=== PATIENT | female | born 1945 | race Caucasian/White ===

== ENCOUNTER 2020-06-12 14:33 | Outpatient (CLI) | payer MEDICARE, SELFPAY ==
--- NOTE | 2020-06-12 14:38 | MM_ITS ---
WS: [id number] BILATERAL DIGITAL SCREENING MAMMOGRAPHY WITH CAD CLINICAL INFORMATION: SCREENING HISTORY: Screening mammogram. No current complaints. COMPARISON: TECHNIQUE: Bilateral CC and MLO views. FINDINGS: Scattered fibroglandular densities bilaterally. No suspicious focal mass, asymmetry, calcifications, or architectural distortion. No evidence of malignancy. Punctate calcifications. Vascular calcificati on. MM/[place] [id number] IMPRESSION: BI-RADS: 2-Benign FOLLOW UP: 1 Year Follow-up Recommend return to annual screening mammography.
== END 2020-06-12 14:34 | disposition home or self-care (01) ==
LOC: RADSHAW 14:37
PROVIDERS: PCP Family Medicine; Visit Provider Obstetrics & Gynecology
DX: Z12.31 Encounter for screening mammogram for malignant neoplasm of breast (principal)
CPT/HCPCS: 77067

== ENCOUNTER 2021-07-14 13:06 | Outpatient (CLI) | payer MEDICARE, SELFPAY ==
--- NOTE | 2021-07-14 13:11 | MM_ITS ---
WS: [id number] BILATERAL SCREENING DIGITAL MAMMOGRAM WITH CAD HISTORY: SCREENING COMPARISON: 06/12/2020 and 04/04/2019 Bilateral CC and MLO views submitted. Computer aided detection analyzed. Breast composition: There are scattered areas of fibroglandular density. No suspicious masses, microc alcifications or architectural distortion. Benign calcifications in each breast. MM/[place] [id number] IMPRESSION: BI-RADS: 2-Benign FOLLOW UP: 1 Year Follow-up
== END 2021-07-14 13:07 | disposition home or self-care (01) ==
LOC: RADSHAW 13:10
PROVIDERS: PCP Family Medicine; Visit Provider Obstetrics & Gynecology
DX: Z12.31 Encounter for screening mammogram for malignant neoplasm of breast (principal)
CPT/HCPCS: 77067

== ENCOUNTER 2022-04-19 06:39 | Outpatient (CLI) | payer MEDICARE, SELFPAY ==
--- NOTE | 2022-04-19 06:52 | ECG_ITS ---
[facility] Test Date: 2022-04-19 Pat Name: Janay Erickson Department: Room: Gender: Female Consumer [employer]: : 1945 Requested By: Bradley Judd Order Number: [id number] Eve MD: Kwesi Flower M.D. Interpretive Statements NAME OF STUDY: LEXISCAN SESTAMIBI STRESS TEST INDICATION: [Chest Pain; Shortness of Breath;Fatigue, ] Procedure: At the baseline, the blood pressure was 157/85 mmHg with a heart rate of 59 bpm. The electrocardiogram showed normal sinus rhythm, normal axis with normal ST and T's. The Lexiscan was infused over a period of 20 seconds. A total of 0.4 mg of Lexiscan was infused. The stress phase was continued for a total of 5 minutes. Heart rate was at the end of stress phase was 75 bpm and a blood pressure of 152/71 mmHg. The EKG at the peak infusion revealed since normal sinus rhythm with no significant ST-T wave changes. Sestamibi was injected 20 seconds after the Lexiscan infusion. Blood pressure at the end of recovery phase was 145/69 mmHg with a heart rate of 72 bpm. Conclusion: 1. Normal EKG response to Lexiscan infusion 2. No Lexiscan induced chest pain or cardiac arrhythmia. 3. Normal blood pressure and heart rate response. 4. Sestamibi/sestamibi perfusion scan pending; see separate report. Electronically Signed On 05-10-2022 8:28:12 CDT by Kwesi Flower M.D. [email or web address]
--- NOTE | 2022-04-19 06:52 | NMCV_ITS ---
NM rachelle perf SPECT r/s* [id number] Janay Erickson Age: 76 Gender: F : 1945 Exam Date: 04/19/2022 08:05 Ordering Phys: Bradley Jimenez MD Technologist: ELIZABETH Zuluaga Exam Location: [facility] Indications: CHEST PAIN STRESS TEST [facility] IMAGE PROTOCOL Rest/Stress 1 Lexiscan Day Radiopharmaceutical Dose (mCi) Administration Site Administered by Rest: Tc-99m 10.7 IV ELIZABETH Julien Sestamibi Stress:Tc-99m 32.9 IV ELIZABETH Zuluaga Sestamigilma Rest: 19-Apr-2022 60 Discovery 630 Stress: 19-Apr-2022 30 Discovery 630 0.4mg Lexiscan. Images obtained in supine and prone position. SPECT RESULTS Technical Quality: Excellent Raw Data Analysis: Normal Image Corrections: No attenuation or motion correction applied Summed Stress Score: 1 Summed Rest Score: 1 Summed Difference Score: 0 PERFUSION FINDINGS SPECT images demonstrate homogeneous tracer distribution throughout the myocardium. FUNCTIONAL RESULTS (calculated via Gated SPECT) Stress Image LV EF (%): 68 Stress EDV (mL):111 TID: 1.16 Stress ESV (mL):35 FUNCTIONAL FINDINGS: There is normal left ventricular systolic function. IMPRESSIONS 1. Normal myocardial perfusion imaging with no evidence of ischemia. 2. LV systolic function is normal Kwesi Flower MD (Electronically Signed) Final Date: 23 Apr 2022 23:54 S
[2022-04-19 07:01] VITALS: BMI 24.7
[2022-04-19] MEDS: regadenoson 0.4 Mg/5 ml Syringe IVP (08:36)
[2022-04-19 08:53] VITALS: BP 140/67; PULSE 70
== END 2022-04-19 06:40 | disposition home or self-care (01) ==
LOC: CDL 06:42
PROVIDERS: PCP Family Medicine; Visit Provider Family Medicine
DX: R07.9 Chest pain, unspecified (principal)
CPT/HCPCS: 78452; A9500; J2785

== ENCOUNTER 2022-07-29 09:34 | Outpatient (CLI) | payer MEDICARE, SELFPAY ==
--- NOTE | 2022-07-29 09:47 | MM_ITS ---
WS: [id number] VIEWS: MLO and CC views both breasts. 3D digital tomosynthesis is also included in this exam. Comparison made with prior exam of 03/22/2017, 04/03/2018, 04/04/2019, 06/12/2020, 07/14/2021.. Findings: There was no sign of mass, architectural distortion or suspicious calcification in either breast. Sc attered fibroglandular densities MM/[place] [id number] Impression: BI-RADS: 2-Benign FOLLOW-UP: 1 Year Follow-up This mammogram was also analyzed by the Computer Aided Detection System R2 Imag e Edger Tailer.
== END 2022-07-29 09:35 | disposition home or self-care (01) ==
PROVIDERS: PCP Family Medicine; Visit Provider Family Medicine
DX: Z12.31 Encounter for screening mammogram for malignant neoplasm of breast (principal)
CPT/HCPCS: 77063; 77067

== ENCOUNTER 2023-08-10 11:09 | Outpatient (CLI) | payer MEDICARE, SELFPAY ==
--- NOTE | 2023-08-10 11:17 | MM_ITS ---
WS: [id number] BILATERAL SCREENING DIGITAL TOMOSYNTHESIS MAMMOGRAM WITH CAD HISTORY: SCREENING COMPARISON: 07/29/2022 and 07/14/2021 and 06/12/2020 Bilateral CC and MLO views with tomosynthesis and synthetic mammography submitted. Computer aided det ection analyzed. Breast composition: There are scattered areas of fibroglandular density. No suspicious masses, microc alcifications or architectural distortion. Benign round calcifications and arterial calcifications wi thin each breast. IMPRESSION: MM/[place] [id number] BI-RADS: 2-Benign FOLLOW UP: 1 Year Follow-up
== END 2023-08-10 11:10 | disposition home or self-care (01) ==
PROVIDERS: PCP Family Medicine; Visit Provider Family Medicine
DX: Z12.31 Encounter for screening mammogram for malignant neoplasm of breast (principal)
CPT/HCPCS: 77063; 77067

== ENCOUNTER → 2023-09-27 11:43 | Outpatient (BNVA) | payer MEDICARE, SELFPAY | PROVIDERS: PCP Family Medicine; Visit Provider Family Medicine | DX: Z51.81 Encounter for therapeutic drug level monitoring (principal); I10 Essential (primary) hypertension; Z13.220 Encounter for screening for lipoid disorders; E55.9 Vitamin D deficiency, unspecified | CPT/HCPCS: 80053; 80061; 82306; 85025 ==

== ENCOUNTER → 2024-06-24 11:33 | Outpatient (BNVA) | payer MEDICARE, SELFPAY | PROVIDERS: PCP Family Medicine | DX: R50.9 Fever, unspecified (principal) | CPT/HCPCS: 87400; 87426 ==

== ENCOUNTER → 2024-06-27 09:09 | Outpatient (BNVA) | payer MEDICARE, SELFPAY | PROVIDERS: PCP Family Medicine; Visit Provider Podiatrist Foot & Ankle Surgery | DX: L60.3 Nail dystrophy (principal) | CPT/HCPCS: 99203 ==

== ENCOUNTER 2024-08-13 13:09 | Outpatient (CLI) | payer MEDICARE, SELFPAY ==
--- NOTE | 2024-08-13 13:13 | MM_ITS ---
WS: [id number] BILATERAL 3D TOMOSYNTHESIS DIGITAL SCREENING MAMMOGRAPHY WITH CAD CLINICAL INFORMATION: SREENING HISTORY: Screening mammogram. No current complaints. COMPARISON: 2022 TECHNIQUE: Bilateral CC and MLO views. FINDINGS: Scattered fibroglandular densities bilaterally. No suspicious focal mass, asymmetry, calcifications, or architectural distortion. No evidence of malignancy. Incidental punctate and coarse calcifications . Vascular calcifications. MM/MM scr tomosynthesis [id number] IMPRESSION: DENSITY: There are scattered areas of fibroglandular density. BI-RADS: 2 - Benign. FOLLOW UP: 1 Year Follow-up Recommend return to annual screening mammography.
== END 2024-08-13 13:10 | disposition home or self-care (01) ==
LOC: RAD 13:10
PROVIDERS: PCP Family Medicine; Visit Provider Family Medicine
DX: Z12.31 Encounter for screening mammogram for malignant neoplasm of breast (principal)
CPT/HCPCS: 77063; 77067

== ENCOUNTER 2025-06-27 10:11 | Outpatient (CLI) | payer MEDICARE, SELFPAY ==
--- NOTE | 2025-06-27 10:20 | XRR_ITS ---
PROCEDURE INFORMATION: Exam: XR Chest Exam date and time: 06/27/2025 10:38 AM Age: 79 years old Clinical indication: Dyspnea; PT states HX of copd, has been SOB for months TECHNIQUE: Imaging protocol: Radiologic exam of the chest. Views: 2 views. COMPARISON: No relevant prior studies available. FINDINGS: Lungs: Mildly hyperinflated lungs are demonstrated. On the frontal view bilateral prominent nipple shadows are suggested. No other potential pulmonary nodules are seen on the PA view and none are evident on the lateral view. Pleural spaces: No pleural effusions are noted. Heart/Mediastinum: Unremarkable. No cardiomegaly. Vasculature: Aortic calcification is seen without aneurysm or dissection. Pulmonary vasculature appears normal. Lateral view suggest LAD calcifications. Bones/joints: A lower thoracic levoconvex and upper lumbar dextroconvex scoliosis is present. Other findings: No inflammatory infiltrates are present. XR/XR chest 2V* [id number] IMPRESSION: 1. Suspect prominent bilateral nipple shadows. Clinical correlation suggested. Consider repeat chest x-ray with nipple markers. 2. Pulmonary hyperinflation. 3. Aortic and coronary artery atherosclerotic calcifications.
== END 2025-06-27 10:12 | disposition home or self-care (01) ==
PROVIDERS: PCP Family Medicine; Visit Provider Family Medicine
DX: Z00.00 Encounter for general adult medical examination without abnormal findings (principal); R06.00 Dyspnea, unspecified; J44.9 Chronic obstructive pulmonary disease, unspecified; R53.83 Other fatigue; R53.81 Other malaise; Z51.81 Encounter for therapeutic drug level monitoring; E55.9 Vitamin D deficiency, unspecified; E53.8 Deficiency of other specified B group vitamins; I25.10 Atherosclerotic heart disease of native coronary artery without angina pectoris; I70.0 Atherosclerosis of aorta; J98.4 Other disorders of lung
CPT/HCPCS: 71046; 80053; 80061; 82306; 82607; 84439; 84443; 85025

== ENCOUNTER 2025-06-30 11:32 | Outpatient (CLI) | payer MEDICARE, SELFPAY ==
--- NOTE | 2025-06-30 11:41 | XR_ITS ---
WS: [id number] XR chest 2V* [id number] REASON FOR EXAM: Repeat with nipple markers for dyspnea FINDINGS: The chest is unchanged compared to the previous examination of 06/27/2025. Nipple markers do not overlie the right lower lung nodule. The nodule appears partially calcified but was not present on an examination of 07/21/2015. No new findings or other interval change. XR/XR chest 2V* [id number] IMPRESSION: Right lower lung nodule of uncertain chronicity and likely partially calcified. Most likely benign but recommend follow-up chest x-ray in 4 months.
== END 2025-06-30 11:33 | disposition home or self-care (01) ==
PROVIDERS: PCP Family Medicine; Visit Provider Family Medicine
DX: J44.9 Chronic obstructive pulmonary disease, unspecified (principal); R91.1 Solitary pulmonary nodule
CPT/HCPCS: 71046

== ENCOUNTER 2025-08-14 13:02 | Outpatient (CLI) | payer MEDICARE, SELFPAY ==
--- NOTE | 2025-08-14 13:20 | MM_ITS ---
WS: [id number] BILATERAL SCREENING DIGITAL TOMOSYNTHESIS MAMMOGRAM WITH CAD HISTORY: Screening COMPARISON: 08/13/2024, 08/10/2023, 04/04/2019 Bilateral CC and MLO views with tomosynthesis and synthetic mammography submitted. Computer aided detection analyzed. Breast composition: There are scattered areas of fibroglandular density. No suspicious masses, microcalcifications or architectural distortion. Benign calcifications and arterial calcifications in each breast. Asymmetry retroareolar LEFT breast is stable over multiple prior years. MM/MM scr BI tomosynthesis [id number] IMPRESSION: BI-RADS: 2 - Benign. FOLLOW UP: 1 Year Follow-up
== END 2025-08-14 13:03 | disposition home or self-care (01) ==
LOC: RAD 13:03
PROVIDERS: PCP Family Medicine; Visit Provider Family Medicine
DX: Z12.31 Encounter for screening mammogram for malignant neoplasm of breast (principal); R92.323 Mammographic fibroglandular density, bilateral breasts; R92.1 Mammographic calcification found on diagnostic imaging of breast; N64.89 Other specified disorders of breast
CPT/HCPCS: 77063; 77067